=== PATIENT | female | born 1960 | race Two or more races ===

== ENCOUNTER 2021-12-29 03:21 | Emergency (ER) | payer OTHER ==
[~2021-12-29] VITALS: Ht 170.2 cm; Wt 63.5 kg
[2021-12-29] MEDS ORDERED: PERCOCET 5-3251 EACH PO (07:09)
== END 2021-12-29 07:42 | disposition home or self-care (01) ==
LOC: ER 03:21
DX: S42.351A Displaced comminuted fracture of shaft of humerus, right arm, initial encounter for closed fracture (principal); S42.251A Displaced fracture of greater tuberosity of right humerus, initial encounter for closed fracture; W18.2XXA Fall in (into) shower or empty bathtub, initial encounter; Y93.89 Activity, other specified; Y92.091 Bathroom in other non-institutional residence as the place of occurrence of the external cause; Y99.9 Unspecified external cause status; M79.601 Pain in right arm